=== PATIENT | female | born 1970 | race Caucasian/White ===

== ENCOUNTER 2016-08-28 11:03 | Observation (INO) | payer OTHER ==
[~2016-08-28] VITALS: Ht 170.2 cm; Wt 130.0 kg
[2016-08-28 13:01] LABS: BASOPHIL COUNT 0.1 K/uL (0-0.1); EOSINOPHIL (%) 0.8 % (0-5); EOSINOPHIL COUNT 0.1 K/uL (0-0.3); HEMATOCRIT 36.4 % (36.0-46.0); IMMATURE GRANULOCYTE (%) 1.1 % (0.0-0.7); IMMATURE GRANULOCYTE COUNT 0.1 K/uL; INSTRUMENT ABS NEUTROPHIL CT 6.7 K/uL; LYMPHOCYTE COUNT 1.9 K/uL (1.0-2.8); MCH 29.3 PG (29.0-34.0); MEAN PLAT.VOLUME 9.3 uM^3 (9.5-12.4); MONOCYTE (%) 5.2 % (3-12); MONOCYTE COUNT 0.5 K/uL (0-0.8); NEUTROPHIL (%) 72.3 % (45-76); NEUTROPHIL COUNT 6.7 K/uL (1.8-6.4); PLATELET COUNT 271 K/uL (156-360); RBC DIS.WIDTH-CV 11.9 % (11.8-14.6); RBC DIS.WIDTH-SD 38.4 % (39-53); RED BLOOD COUNT 4.09 M/uL (3.80-5.20); WHITE BLOOD COUNT 9.2 K/uL (4.1-10.2)
[2016-08-28 13:08] LABS: CHLORIDE 104 mEq/L (99-109); POTASSIUM 4.6 mEq/L (3.7-5.4); SODIUM 134 mEq/L (136-147)
[2016-08-28 13:10] LABS: GLUCOSE 98 mg/dL (70-99)
[2016-08-28 13:11] LABS: D-DIMER ELISA 0.25 mg/L FEU (< 0.57); PROTHROMBIN TIME 9.7 (9.2-11.2)
[2016-08-28 13:12] LABS: ANION GAP 8 MEQ/L (2-14)
[2016-08-28 13:14] LABS: GFR ESTIMATE (CALCULATED) > 59 mL/min/
[2016-08-28 13:15] LABS: UREA NITROGEN (BUN) 12 mg/dL (9-23)
[2016-08-28 13:22] LABS: TROP-I INTERPRETATION NEGATIVE; TROPONIN-I < 0.01 ng/mL (0.0-0.30)
[2016-08-28] MEDS ORDERED: LEVO-T150 MCG PO (13:49)
[2016-08-28] MEDS ORDERED: BUSPAR15 MG PO (13:50)
[2016-08-28] MEDS ORDERED: TOPROL XL50 MG PO (13:50)
[2016-08-28] MEDS ORDERED: PLAVIX75 MG PO (13:50)
[2016-08-28] MEDS ORDERED: ATORVASTATIN CA40 MG PO (13:50)
[2016-08-28] MEDS ORDERED: CYMBALTA60 MG PO (13:50)
[2016-08-28] MEDS ORDERED: ADVIL200 MG PO (13:51)
[2016-08-28] MEDS ORDERED: METFORMIN HCL1000 MG PO (13:51)
[2016-08-28] MEDS ORDERED: LO-DOSE ASPIRIN81 M2 PO (13:51)
[2016-08-28] MEDS ORDERED: TOPAMAX50 MG PO (13:51)
[2016-08-28 15:52] VITALS: BP 107/59
[2016-08-28 16:11] LABS: POINT-OF-CARE METER ID UU13113831
[2016-08-28 20:13] LABS: TROP-I INTERPRETATION NEGATIVE; TROPONIN-I < 0.01 ng/mL (0.0-0.30)
[2016-08-28 20:31] LABS: POINT-OF-CARE METER ID UU13113700
[2016-08-29 00:24] VITALS: BP 134/86
[2016-08-29 01:23] LABS: TROP-I INTERPRETATION NEGATIVE; TROPONIN-I < 0.01 ng/mL (0.0-0.30)
[2016-08-29 03:34] VITALS: BP 90/54
[2016-08-29 08:01] VITALS: BP 103/59
== END 2016-08-29 10:55 | disposition home or self-care (01) ==
LOC: EME 11:03 → 5WEST 13:37 → EDOF 13:37 → 5WEST 15:48
PROVIDERS: Emergency Medicine; Internal Medicine
DX: R07.89 Other chest pain (principal); I25.2 Old myocardial infarction; E11.9 Type 2 diabetes mellitus without complications; I10 Essential (primary) hypertension; E78.5 Hyperlipidemia, unspecified; I25.10 Atherosclerotic heart disease of native coronary artery without angina pectoris; F41.9 Anxiety disorder, unspecified; E66.9 Obesity, unspecified; G47.33 Obstructive sleep apnea (adult) (pediatric); E89.0 Postprocedural hypothyroidism; K21.9 Gastro-esophageal reflux disease without esophagitis; Z79.82 Long term (current) use of aspirin; Z79.02 Long term (current) use of antithrombotics/antiplatelets; Z68.41 Body mass index [BMI] 40.0-44.9, adult
CPT/HCPCS: 80048; 82948; 84484; 85025; 85379; 85610; 93005; 99281; 99285; G0378; J1650; J1815

== ENCOUNTER 2017-04-22 11:22 | Observation (INO) | payer OTHER ==
[~2017-04-22] VITALS: Ht 170.2 cm; Wt 128.0 kg
[~2017-04-22 11:22] MED LIST: ADVIL200 MG PO; ATORVASTATIN CA40 MG PO; BUSPAR15 MG PO; CYMBALTA60 MG PO; LEVO-T150 MCG PO; LO-DOSE ASPIRIN81 M2 PO; METFORMIN HCL1000 MG PO; PLAVIX75 MG PO; TOPAMAX50 MG PO; TOPROL XL50 MG PO
[2017-04-22 12:02] LABS: HEMOGLOBIN 13.2 G/DL (11.9-15.5); MCH 29.9 PG (29.0-34.0); MCHC 33.8 G/DL (30.0-36.0); MCV 88.2 FL (83-99); PLATELET COUNT 310 K/uL (156-360); RBC DIS.WIDTH-CV 12.2 % (11.8-14.6); RBC DIS.WIDTH-SD 39.1 % (39-53); RED BLOOD COUNT 4.42 M/uL (3.80-5.20); WHITE BLOOD COUNT 8.7 K/uL (4.1-10.2)
[2017-04-22 12:12] LABS: CHLORIDE 107 mEq/L (99-109); POTASSIUM 3.7 mEq/L (3.7-5.4); SODIUM 138 mEq/L (136-147)
[2017-04-22 12:14] LABS: GLUCOSE 103 mg/dL (70-99)
[2017-04-22 12:17] LABS: CREATININE 0.8 mg/dL (0.6-1.3); GFR ESTIMATE (CALCULATED) > 59 mL/min/
[2017-04-22 12:18] LABS: UREA NITROGEN (BUN) 15 mg/dL (9-23)
[2017-04-22 12:22] LABS: TROP-I INTERPRETATION NEGATIVE; TROPONIN-I < 0.01 ng/mL (0.0-0.30)
[2017-04-22 15:18] LABS: TROP-I INTERPRETATION NEGATIVE; TROPONIN-I 0.02 ng/mL (0.0-0.30)
[2017-04-22] MEDS ORDERED: OMEPRAZOLE20 MG PO (16:11)
[2017-04-22] MEDS ORDERED: SUPER B COMPL400 MCG PO (16:12)
[2017-04-22] MEDS ORDERED: CLOPIDOGREL75 MG PO (16:13)
[2017-04-22] MEDS ORDERED: TOPIRAMATE50 MG PO (16:13)
[2017-04-22] MEDS ORDERED: LEVOTHYROXINE150 MCG PO (16:13)
[2017-04-22] MEDS ORDERED: DULOXETINE HCL60 MG PO (16:13)
[2017-04-22] MEDS ORDERED: TRAMADOL HCL50 MG PO (16:13)
[2017-04-22] MEDS ORDERED: METOPROLOL SUCC50 MG PO (16:13)
[2017-04-22] MEDS ORDERED: PROAIR HFA8.5 GM IH (16:14)
[2017-04-22 16:29] LABS: D-DIMER ELISA < 150.00 ng/mLDDU (<230)
[2017-04-22 16:44] VITALS: BP 136/86
[2017-04-22 19:00] VITALS: BP 109/56
[2017-04-22 23:35] VITALS: BP 112/58
[2017-04-23 00:58] LABS: TROP-I INTERPRETATION NEGATIVE; TROPONIN-I < 0.01 ng/mL (0.0-0.30)
[2017-04-23 04:05] VITALS: BP 102/59
[2017-04-23 06:13] LABS: HDL CHOLESTEROL 32 MG/DL (Desirable>=50); LDL CHOLESTEROL 79 mg/dL (Desirable<100); NON-HDL CHOLESTEROL 137 mg/dL (Desirable<160); TOTAL CHOLESTEROL 169 mg/dL (Desirable<200); TRIGLYCERIDES 291 MG/DL (Normal: <150)
[2017-04-23 06:16] LABS: TROP-I INTERPRETATION NEGATIVE; TROPONIN-I < 0.01 ng/mL (0.0-0.30)
[2017-04-23 08:28] VITALS: BP 119/58
[2017-04-23 09:05] LABS: HEMOGLOBIN A1c (GLYCOHEMOGLOB) 5.9 % (Below 5.7)
[2017-04-23 11:13] VITALS: BP 124/61
== END 2017-04-23 14:20 | disposition home or self-care (01) ==
LOC: EME 11:22 → 5WEST 15:00 → EDOF 15:00 → ENRESERV 15:05 → 5WEST 16:21
PROVIDERS: Internal Medicine; Physician Assistant
DX: R07.89 Other chest pain (principal); R51 Headache; R11.2 Nausea with vomiting, unspecified; R42 Dizziness and giddiness; I25.10 Atherosclerotic heart disease of native coronary artery without angina pectoris; I25.2 Old myocardial infarction; E11.9 Type 2 diabetes mellitus without complications; I10 Essential (primary) hypertension; E03.9 Hypothyroidism, unspecified; E78.5 Hyperlipidemia, unspecified; E66.01 Morbid (severe) obesity due to excess calories; F41.9 Anxiety disorder, unspecified; Z90.49 Acquired absence of other specified parts of digestive tract; Z90.710 Acquired absence of both cervix and uterus; Z82.49 Family history of ischemic heart disease and other diseases of the circulatory system; Z79.82 Long term (current) use of aspirin; Z79.84 Long term (current) use of oral hypoglycemic drugs; Z88.2 Allergy status to sulfonamides
CPT/HCPCS: 71046; 80048; 80061; 82948; 83036; 84484; 85027; 85379; 87493; 93005; 99281; 99285; G0378; J1644; S0028

== ENCOUNTER 2017-10-28 12:55 | Emergency (ER) | payer OTHER ==
[~2017-10-28] VITALS: Ht 172.7 cm; Wt 127.7 kg
[~2017-10-28 12:55] MED LIST changes: +CLOPIDOGREL75 MG PO; +DULOXETINE HCL60 MG PO; +LEVOTHYROXINE150 MCG PO; +METOPROLOL SUCC50 MG PO; +OMEPRAZOLE20 MG PO; +PROAIR HFA8.5 GM IH; +SUPER B COMPL400 MCG PO; +TOPIRAMATE50 MG PO; +TRAMADOL HCL50 MG PO
[2017-10-28 13:45] LABS: HEMATOCRIT 35.8 % (36.0-46.0); HEMOGLOBIN 12.1 G/DL (11.9-15.5); MCH 29.8 PG (29.0-34.0); MCHC 33.8 G/DL (30.0-36.0); MCV 88.2 FL (83-99); PLATELET COUNT 311 K/uL (156-360); RBC DIS.WIDTH-CV 11.9 % (11.8-14.6); RBC DIS.WIDTH-SD 38.7 % (39-53); RED BLOOD COUNT 4.06 M/uL (3.80-5.20); WHITE BLOOD COUNT 8.9 K/uL (4.1-10.2)
[2017-10-28 13:56] LABS: CHLORIDE 106 mEq/L (99-109); POTASSIUM 3.2 mEq/L (3.7-5.4); SODIUM 140 mEq/L (136-147)
[2017-10-28 13:57] LABS: GLUCOSE 101 mg/dL (70-99)
[2017-10-28 14:01] LABS: CREATININE 0.8 mg/dL (0.6-1.3); GFR ESTIMATE (CALCULATED) > 59 mL/min/
[2017-10-28 14:05] LABS: TROP-I INTERPRETATION NEGATIVE; TROPONIN-I < 0.01 ng/mL (0.0-0.30)
[2017-10-28 14:09] LABS: QUANTITATIVE HCG < 4.0 MIU/ML
[2017-10-28 15:22] LABS: UREA NITROGEN (BUN) 10 mg/dL (9-23)
[2017-10-28 16:00] LABS: TROP-I INTERPRETATION NEGATIVE; TROPONIN-I < 0.01 ng/mL (0.0-0.30)
[2017-10-28 16:47] VITALS: BP 109/59
== END 2017-10-28 16:49 | disposition home or self-care (01) ==
LOC: EME 12:55
PROVIDERS: Nurse Practitioner Family
DX: R07.9 Chest pain, unspecified (principal); F41.9 Anxiety disorder, unspecified; K21.9 Gastro-esophageal reflux disease without esophagitis; E11.9 Type 2 diabetes mellitus without complications; E78.5 Hyperlipidemia, unspecified; I10 Essential (primary) hypertension; Z79.84 Long term (current) use of oral hypoglycemic drugs; I25.2 Old myocardial infarction; Z79.02 Long term (current) use of antithrombotics/antiplatelets; G47.30 Sleep apnea, unspecified; F32.9 Major depressive disorder, single episode, unspecified; Z88.2 Allergy status to sulfonamides
CPT/HCPCS: 71046; 80048; 84484; 84702; 85027; 93005; 99281; 99284